=== PATIENT | female | born 1960 | race Caucasian/White ===

== ENCOUNTER 2016-07-09 21:13 | Emergency (ER) | payer OTHER ==
--- NOTE | 2016-07-09 21:59 | DIAGNOSTIC IMAGING REPORT ---
PROCEDURE: XR CHEST 1 VIEW INDICATION: SHORTNESS OF BREATH TECHNIQUE: Portable AP view 09:39 p.m. COMPARISON: None. FINDINGS: Small left basilar infiltrate. Heart and mediastinum are normal. Thorax is normal. IMPRESSION: 1. Small left basilar infiltrate.
--- NOTE | 2016-07-09 22:19 | ED CLINICAL REPORT ---
Clinical Report - Physicians/Mid Levels [facility] [address] [place] [address] 07/09/2016 21:17 [id number] Time Seen: 21:25; initial patient contact. Arrived- By private vehicle. Historian- patient. HISTORY OF PRESENT ILLNESS Chief Complaint: DYSPNEA. This started several weeks ago and is still present (worse since 3 days ago). The dyspnea is described as moderate. The patient has had sputum production, a cough, chest discomfort, wheezing and dyspnea on exertion. No fever, sweating episodes, chills, chest pain or calf pain. No foot swelling, orthopnea or palpitations. Similar symptoms previously: Several times. Recent medical care: Not recently seen/assessed. REVIEW OF SYSTEMS The patient has had a nasal discharge, sinus drainage and a sore throat. No nausea or vomiting. All systems otherwise negative, except as recorded above. PAST HISTORY HTN Anxiety Pneumonia. Surgeries: Carpal tunnel surgery. Medications: anxiety med. HCTZ. Lisinopril Oral. Allergies: No Known Drug Allergy. SOCIAL HISTORY Current every day smoker. Occasional alcohol use. History of drug use: marijuana. ADDITIONAL NOTES The nursing notes have been reviewed. PHYSICAL EXAM Vital Signs: 07/09/2016 21:23 BP: 150/88. HR: 103. RR: 20. O2 saturation: 96%. Temp: 98.1 F. Pain level now: 8/10. Have been reviewed. Hypertensive. Tachycardic. Respiratory rate normal. Temperature normal. Oxygen saturation normal. Appearance: Alert. No acute distress. Eyes: Eyes normal inspection. ENT: The mucous membranes are not dry. Neck: Normal inspection. CVS: Normal heart rate and rhythm. Heart sounds normal. Respiratory: No respiratory distress. Mild rhonchi present in the left lung base posteriorly. No decreased air movement, prolonged expiration or wheezes. Abdomen: Soft and nontender. No organomegaly. Extremities: No calf tenderness. No lower extremity edema. LABS, X-RAYS, AND EKG EKG: EKG time: (2135). No acute process. No acute ischemia. Normal EKG. Normal sinus rhythm. Rate: 91. Normal P waves. Normal FREDIS. Normal QRS complex. Normal axis. Normal ST and T waves, QT and QTc. Prior EKG unavailable. The study has been interpreted contemporaneously by me. The study has been independently viewed by me. The EKG appears to be a good tracing. Interpretation time: 2135. Chest X-ray: Diffuse infiltrate in the left lower lobe. Consistent with pneumonia. Views: AP. Technique: good. The X-rays were independently viewed by me and interpreted contemporaneously by me. Prior films were not available for comparison. Interpretation time: 22:16. PROGRESS AND PROCEDURES Disposition: Discharged home in good condition (22:20). Condition: good. CLINICAL IMPRESSION Bacterial pneumonia. Empiric antibiotics given in the ED and prescribed. No hypoxemia, respiratory failure or sepsis. INSTRUCTIONS Do not smoke. Seek medical help to quit smoking. Prescription Medications: Levofloxacin 750 mg: take 1 tab orally every day for 4 days. No refills. (Do not start until 07/10/16) Prednisone 20 mg: take 2 orally every day for 4 days. Dispense sufficient quantity. No refills. (Do not start until 07/10/16) Follow-up: Follow up with your doctor in about two days. Call for an appointment. Blood pressure screening was not performed during this visit because the patient has an active diagnosis of hypertension. (Electronically signed by Navid Bynum Dr. 07/09/2016 22:32)
--- NOTE | 2016-07-09 22:20 | ED NURSING NOTES ---
Clinical Report - Nurses [facility] [address] [place] [address] 07/09/2016 21:17 Patient: JO ANN DAWKINS TRIAGE Triage time 2120. Acuity: LEVEL 3. Chief Complaint: DIFFICULTY BREATHING and WHEEZING. --21:31 Nicolette Fuentes R.N. 21:23 07/09/16. BP: 150/88. HR: 103. RR: 20. O2 saturation: 96% on nasal cannula. Temp: 98.1 F. Pain level now: 10/06. --21:31 Nicolette Fuentes R.N. Weight: 88.4 kg stated. Height/Length: 65 inches Per Patient. BMI: 32.5. --21:24 Nicolette Fuentes R.N. Medications Lisinopril Oral 20 mg, daily. --21:28 Nicolette Fuentes R.N. HCTZ 25mg, daily. --21:30 Nicolette Fuentes R.N. albuterol MDI 2 puffs prn- 1999. --21:36 Nicolette Fuentes R.N. Escitalopram Oxalate Oral 10 mg, daily. --21:39 Nicolette Fuentes R.N. The following entry was struck by Nicolette Fuentes R.N., 21:39 (07/09/16) Reason - other. <<STRICKEN ENTRY-- anxiety med. --21:31 Nicolette Fuentes R.N. --END STRIKE>> The following entry was struck and corrected by Nicolette Fuentes R.N., 21:38 (07/09/16) Reason for correction - other(correction). <<STRICKEN ENTRY-- Lisinopril Oral. --21:28 Nicolette Fuentes R.N. --END STRIKE>> The following entry was struck and corrected by Nicolette Fuentes R.N., 21:38 (07/09/16) Reason for correction - other(correction). <<STRICKEN ENTRY-- HCTZ. --21:30 Nicolette Fuentes R.N. --END STRIKE>>. Allergies No Known Drug Allergy. --21:29 Nicolette Fuentes R.N. History Arrived by private vehicle. Historian: patient. Unaccompanied. Primary physician (aroldo mo). Onset. (has had cold symptoms off and on for several weeks, much worse last 3 days. having left side/back pain pain). She has had a cough productive of clear sputum. She has had wheezing and chest pain (with breathing deep or coughing). PAST MEDICAL HX: Hypertension. Asthma. The patient is post-menopausal. SURGERY HX: Carpal tunnel surgery. SOCIAL HX: Heavy tobacco smoker (cigarette)- less than 1 pack per day. Occasional alcohol use. History of drug use: marijuana. --21:31 Nicolette Fuentes R.N. PROBLEMS: Pneumonia. --21:27 Nicolette Fuentes R.N. Interventions ID band on patient. To treatment room. --21:31 Nicolette Fuentes R.N. PHYSICAL ASSESSMENT 21:20. Ambulatory to room. Patient gowned. GENERAL / NEURO / PSYCH: Alert. Oriented X 4. Appears anxious. RESPIRATORY: No respiratory distress. The patient can speak in full sentences. Cough. Chest wall tenderness. CVS: Capillary refill less than 2 seconds. GI / : Abdomen soft. SKIN: Skin is warm and dry. --21:32 Nicolette Fuentes R.N. NURSING PROGRESS NOTES 21:20. Oxygen administered. Monitoring of patient in place. Patient gowned. Head of bed elevated. Reassurance given. Patient identifiers checked. Call light placed in reach. Side rails up. Bed placed in lowest position. Patient ready for evaluation- chart flagged. --21:32 Nicolette Fuentes R.N. 21:36. EKG time: (2135). EKG was ordered, performed by a tech and shown to the ED physician. SERGEY Lenz tech. --21:34 Nicolette Fuentes R.N. 21:39 07/09/16. Portable chest x-ray ordered, performed and shown to the ED physician. --21:39 Nicolette Fuentes R.N. 22:02 07/09/2016 Levaquin (Levofloxacin) PO Tablets 500 mg given. Allergies verified and confirmed 5 rights. --22:02 Nicolette Fuentes R.N. 22:02 07/09/2016 Prednisone PO Tablets 40 mg given. Allergies verified and confirmed 5 rights. --22:02 Nicolette Fuentes R.N. 22:00 resting on bed, watching samuel michaels for radiology report. --22:41 Nicolette Fuentes R.N. DISPOSITION / DISCHARGE 22:30. Condition at departure: unchanged and stable. No learning barriers present. Discharge instructions provided and reviewed with the patient. Reviewed medication(s) (levaquin, prednisone). Patient verbalized understanding. Written instructions provided in Pashto. The patient was discharged home and unaccompanied at time of discharge. She left the Emergency Department ambulatory and via private vehicle. Patient driving. --22:38 Nicolette Fuentes R.N. 22:30 07/09/16. BP: 148/84. HR: 88. RR: 20. O2 saturation: 97% on room air. Temp: deferred. Pain level now: 10/06. --22:38 Nicolette Fuentes R.N. Locked/Released at 07/09/2016 22:41 by Nicolette Fuentes R.N.
--- NOTE | 2016-07-09 22:20 | ED ORDER SUMMARY ---
..... Patient: JO ANN DAWKINS OrderSheet [facility] VisitID: [id number] [address] [place] [address] 55y, F Registration Date/Time: 07/09/2016 ORDER SHEET Weight: 88.4 kg (stated) Allergies: No Known Drug Allergy GENERAL ORDERS: Chest 1V Urgent (21:33 07/09/2016 DDean R.N. per protocol) (Ack 21:36 Tramaine ER Model Dresser) (21:40 DDean R.N.) EKG - ER Stat (:33 07/09/2016 DDean R.N. per protocol) (Ack 21:36 Spacenet ER Model Dresser) (21:40 DDean R.N.) MEDICATION ORDERS: Levaquin PO 500 mg (NOW) (21:46 07/09/2016 Teresita Bro) (Ack 21:58 DDean R.N.) (22:02 DDean R.N.) Prednisone PO 40 mg (NOW) (21:46 07/09/2016 Teresita Bro) (Ack 21:58 DDean R.N.) (22:02 DDean R.N.) IV FLUIDS: ORDER SHEET NOTES: [Electronically signed by Navid Bynum Dr. (22:32 07/09/2016)] [Electronically signed by Nicolette Fuentes R.N. (22:41 07/09/2016)] [Electronically locked/signed by Nicolette Fuentes R.N. (22:41 07/09/2016)]
--- NOTE | 2016-07-09 22:20 | ED ORDER SUMMARY ---
..... Patient: JO ANN DAWKINS OrderSheet [facility] VisitID: [id number] [address] [place] [address] 55y, F Registration Date/Time: 07/09/2016 ORDER SHEET Weight: 88.4 kg (stated) Allergies: No Known Drug Allergy GENERAL ORDERS: Chest 1V Urgent (21:33 07/09/2016 DDean R.N. per protocol) (Ack 21:36 Tramaine ER Product Info Specialist) (21:40 DDean R.N.) EKG - ER Stat (:33 07/09/2016 DDean R.N. per protocol) (Ack 21:36 [employer] ER Product Info Specialist) (21:40 DDean R.N.) MEDICATION ORDERS: Levaquin PO 500 mg (NOW) (21:46 07/09/2016 Teresita Bro) (Ack 21:58 DDean R.N.) (22:02 DDean R.N.) Prednisone PO 40 mg (NOW) (21:46 07/09/2016 Teresita Bro) (Ack 21:58 DDean R.N.) (22:02 DDean R.N.) IV FLUIDS: ORDER SHEET NOTES: [Electronically signed by Navid Bynum Dr. (22:32 07/09/2016)] [Electronically signed by Nicolette Fuentes R.N. (22:41 07/09/2016)] [Electronically locked/signed by Nicolette Fuentes R.N. (22:41 07/09/2016)]
--- NOTE | 2016-07-09 22:41 | ED MAR SUMMARY ---
..... Medication Administration Record [facility] [address] [place] [address] Patient: JO ANN DAWKINS Visit ID: [id number] 55y, F Weight: 88.4 kg Height/Length: 65 in BMI: 32.5 ALLERGIES: No Known Drug Allergy Given 22:07/09/2016 Nicolette Fuentes R.N. Medication Administered: LEVAQUIN [PO] (LEVOFLOXACIN), Dose: 500 mg Tablets PO. Medication Ordered: Levaquin PO 500 mg (NOW). Given 22:07/09/2016 Nicolette Fuentes, R.N. Medication Administered: PREDNISONE [PO], Dose: 40 mg Tablets PO. Medication Ordered: Prednisone PO 40 mg (NOW).
--- NOTE | 2016-07-09 22:41 | ED MAR SUMMARY ---
..... Medication Administration Record [facility] [address] [place] [place] [address] Patient: JO ANN DAWKINS Visit ID: [id number] 55y, F Weight: 88.4 kg Height/Length: 65 in BMI: 32.5 ALLERGIES: No Known Drug Allergy Given 22:07/09/2016 Nicolette Fuentes R.N. Medication Administered: LEVAQUIN [PO] (LEVOFLOXACIN), Dose: 500 mg Tablets PO. Medication Ordered: Levaquin PO 500 mg (NOW). Given 22:07/09/2016 Nicolette Fuentes, R.N. Medication Administered: PREDNISONE [PO], Dose: 40 mg Tablets PO. Medication Ordered: Prednisone PO 40 mg (NOW).
--- NOTE | 2016-07-09 22:41 | ED MED RECONCILIATION SUMMARY ---
Patient: JO ANN DAWKINS Medication Reconciliation Report [facility] VisitID: [id number] [address] [place] [address] 55y, F Registration Date/Time: 07/09/2016 Weight: 88.4 kg Height/Length: 65 in. BMI: 32.5 ALLERGIES: No Known Drug Allergy The patient's Home Medications are listed below: THE FOLLOWING MEDICATIONS NEED TO BE RECONCILED: albuterol MDI 2 puffs prn- 2000 Escitalopram Oxalate Oral 10 mg, daily HCTZ 25mg, daily Lisinopril Oral 20 mg, daily The source(s) of the original Home Medication information: Not obtained. The following Medications were given to the patient in the Emergency Department: Levaquin [PO] PO 500 mg, administered: 07/09/2016 10:02:00 PM Prednisone [PO] PO 40 mg, administered: 07/09/2016 10:02:00 PM The following Medications were prescribed to the patient: Levofloxacin 750 mg: take 1 tab orally every day for 4 days. No refills.(Do not start until 07/10/16) -- Navid Bynum Dr. Prednisone 20 mg: take 2 orally every day for 4 days. Dispense sufficient quantity. No refills.(Do not start until 07/10/16) -- Navid Bynum Dr.
--- NOTE | 2016-07-09 22:41 | ED DISCHARGE INSTRUCTIONS ---
Patient: JO ANN DAWKINS General Instructions [facility] VisitID: [id number] [place] [address] 55y, F Registration Date/Time: 07/09/2016 Bacterial pneumonia. Empiric antibiotics given in the ED and prescribed. No hypoxemia, respiratory failure or sepsis. INSTRUCTIONS Do not smoke. Seek medical help to quit smoking. Prescription Medications: Levofloxacin 750 mg: take 1 tab orally every day for 4 days. No refills. (Do not start until 07/10/16) Prednisone 20 mg: take 2 orally every day for 4 days. Dispense sufficient quantity. No refills. (Do not start until 07/10/16) Follow-up: Follow up with your doctor in about two days. Call for an appointment. Blood pressure screening was not performed during this visit because the patient has an active diagnosis of hypertension. ADDITIONAL INFORMATION How To Quit Smoking Smoking is one of the hardest habits to break. About half of all those who have ever smoked have been able to quit, and most of those (about 70%) who still smoke want to quit. Here are some of the best ways to stop smoking. Keep Trying: It takes most smokers about 8 tries before they are finally able to fully quit. So, the more often you try and fail, the better your chance of quitting the next time! So, don't give up! Go Cold [place]: Most ex-smokers quit cold turkey. Trying to cut back gradually doesn't seem to work as well, perhaps because it continues the smoking habit. Also, it is possible to fool yourself by inhaling more while smoking fewer cigarettes. This results in the same amount of nicotine in your body! Get Support: Support programs can make an important difference, especially for the heavy smoker. These groups offer lectures, methods to change your behavior and peer support. Call the free national Quitline for more information. 313-LTOJ-KFT (092-135-7622). Low-cost or free programs are offered by many hospitals, local chapters of the [place] [employer] (741-632-8328) and the [place] [employer] (635-207-5385). Support at home is important too. Non-smokers can help by offering praise and encouragement. If the smoker fails to quit, encourage them to try again! Vwez-Nfd-Luzsfht Medicines: For those who can't quit on their own, Nicotine Replacement Therapy (NRT) may make quitting much easier. Certain aids such as the nicotine patch, gum and lozenge are available without a prescription. However, it is best to use these under the guidance of your doctor. The skin patch provides a steady supply of nicotine to the body. Nicotine gum and lozenge gives temporary bursts of low levels of nicotine. Both methods take the edge off the craving for cigarettes. WARNING: If you feel symptoms of nicotine overdose, such as nausea, vomiting, dizziness, weakness, or fast heartbeat, stop using these and see your doctor. Prescription Medicines: After evaluating your smoking patterns and prior attempts at quitting, your doctor may offer a prescription medicine such as bupropion (Zyban, Wellbutrin), varenicline (Chantix, Champix), a niocotine inhaler or nasal spray. Each has its unique advantage and side effects which your doctor can review with you. Health Benefits Of Quitting: The benefits of quitting start right away and keep improving the longer you go without smokin minutes: blood pressure and pulse return to normal 8 hours: oxygen levels return to normal 2 days: ability to smell and taste begins to improve as damaged nerves start to regrow 2-3 weeks: circulation and lung function improves 1-9 months: decreased cough, congestion and shortness of breath; less tired 1 year: risk of heart attack decreases by half 5 years: risk of lung cancer decreases by half; risk of stroke becomes the same as a non-smoker For information about how to quit smoking, visit the following links: National [employer] , Clearing the Air, Quit Smoking Today - an online booklet. http://www.smokefree.gov/pubs/clearing_the_air.pdf Smokefree.gov http://smokefree.gov/ QuitNet http://www.quitnet.com/ Levofloxacin Oral tablet What is this medicine? LEVOFLOXACIN (veronique may) is a quinolone antibiotic. It is used to treat certain kinds of bacterial infections. It will not work for colds, flu, or other viral infections. How should I use this medicine? Take this medicine by mouth with a full glass of water. Follow the directions on the prescription label. This medicine can be taken with or without food. Take your medicine at regular intervals. Do not take your medicine more often than directed. Do not skip doses or stop your medicine early even if you feel better. Do not stop taking except on your doctor's advice. A special MedGuide will be given to you by the pharmacist with each prescription and refill. Be sure to read this information carefully each time. Talk to your chemical strength tester regarding the use of this medicine in children. While this drug may be prescribed for children as young as 6 months for selected conditions, precautions do apply. What side effects may I notice from receiving this medicine? Side effects that you should report to your doctor or health nurse care manager as soon as possible: -allergic reactions like skin rash or hives, swelling of the face, lips, or tongue -changes in vision -confusion, nightmares or hallucinations -difficulty breathing -irregular heartbeat, chest pain -joint, muscle or tendon pain -pain or difficulty passing urine -persistent headache with or without blurred vision -redness, blistering, peeling or loosening of the skin, including inside the mouth -seizures -unusual pain, numbness, tingling, or weakness -vaginal irritation, discharge Side effects that usually do not require medical attention (report to your doctor or health nurse care manager if they continue or are bothersome): -diarrhea -dry mouth -headache -stomach upset, nausea -trouble sleeping What may interact with this medicine? Do not take this medicine with any of the following medications: - arsenic trioxide - chloroquine - droperidol - medicines for irregular heart rhythm like amiodarone, disopyramide, dofetilide, flecainide, quinidine, procainamide, sotalol - some medicines for depression or mental problems like phenothiazines, pimozide, and ziprasidone This medicine may also interact with the following medications: - amoxapine -antacids - cisapride - dairy products - didanosine (ddI) buffered tablets or powder - haloperidol - multivitamins -NSAIDS, medicines for pain and inflammation, like ibuprofen or naproxen - retinoid products like tretinoin or isotretinoin - risperidone - some other antibiotics like clarithromycin or erythromycin - sucralfate - theophylline - warfarin What if I miss a dose? If you miss a dose, take it as soon as you remember. If it is almost time for your next dose, take only that dose. Do not take double or extra doses. Where should I keep my medicine? Keep out of the reach of children. Store at room temperature between 15 and 30 degrees C (59 and 86 degrees F). Keep in a tightly closed container. Throw away any unused medicine after the expiration date. What should I tell my health care provider before I take this medicine? They need to know if you have any of these conditions: cerebral disease irregular heartbeat kidney disease seizure disorder an unusual or allergic reaction to levofloxacin, other antibiotics or medicines, foods, dyes, or preservatives or trying to get breast-feeding What should I watch for while using this medicine? Tell your doctor or health nurse care manager if your symptoms do not improve or if they get worse. Drink several glasses of water a day and cut down on drinks that contain caffeine. You must not get dehydrated while taking this medicine. You may get drowsy or dizzy. Do not drive, use machinery, or do anything that needs mental alertness until you know how this medicine affects you. Do not sit or stand up quickly, especially if you are an older patient. This reduces the risk of dizzy or fainting spells. This medicine can make you more sensitive to the sun. Keep out of the sun. If you cannot avoid being in the sun, wear protective clothing and use a sunscreen. Do not use sun lamps or tanning beds/booths. Contact your doctor if you get a sunburn. If you are a diabetic monitor your blood glucose carefully. If you get an unusual reading stop taking this medicine and call your doctor right away. Do not treat diarrhea with ojea-eye-twoubio products. Contact your doctor if you have diarrhea that lasts more than 2 days or if the diarrhea is severe and watery. Avoid antacids, calcium, iron, and zinc products for 2 hours before and 2 hours after taking a dose of this medicine. Prednisone Oral tablet What is this medicine? PREDNISONE (PRED ni sone) is a corticosteroid. It is commonly used to treat inflammation of the skin, joints, lungs, and other organs. Common conditions treated include asthma, allergies, and arthritis. It is also used for other conditions, such as blood disorders and diseases of the adrenal glands. How should I use this medicine? Take this medicine by mouth with a glass of water. Follow the directions on the prescription label. Take this medicine with food. If you are taking this medicine once a day, take it in the morning. Do not take more medicine than you are told to take. Do not suddenly stop taking your medicine because you may develop a severe reaction. Your doctor will tell you how much medicine to take. If your doctor wants you to stop the medicine, the dose may be slowly lowered over time to avoid any side effects. Talk to your chemical strength tester regarding the use of this medicine in children. Special care may be needed. What side effects may I notice from receiving this medicine? Side effects that you should report to your doctor or health nurse care manager as soon as possible: allergic reactions like skin rash, itching or hives, swelling of the face, lips, or tongue changes in emotions or moods changes in vision depressed mood eye pain fever or chills, cough, sore throat, pain or difficulty passing urine increased thirst swelling of ankles, feet Side effects that usually do not require medical attention (report to your doctor or health nurse care manager if they continue or are bothersome): confusion, excitement, restlessness headache nausea, vomiting skin problems, acne, thin and shiny skin trouble sleeping weight gain What may interact with this medicine? Do not take this medicine with any of the following medications: metyrapone mifepristone This medicine may also interact with the following medications: aminoglutethimide amphotericin B aspirin and aspirin-like medicines barbiturates certain medicines for diabetes, like glipizide or glyburide cholestyramine cholinesterase inhibitors cyclosporine digoxin diuretics ephedrine female hormones, like estrogens and control pills isoniazid ketoconazole NSAIDS, medicines for pain and inflammation, like ibuprofen or naproxen phenytoin rifampin toxoids vaccines warfarin What if I miss a dose? If you miss a dose, take it as soon as you can. If it is almost time for your next dose, talk to your doctor or health nurse care manager. You may need to miss a dose or take an extra dose. Do not take double or extra doses without advice. Where should I keep my medicine? Keep out of the reach of children. Store at room temperature between 15 and 30 degrees C (59 and 86 degrees F). Protect from light. Keep container tightly closed. Throw away any unused medicine after the expiration date. What should I tell my health care provider before I take this medicine? They need to know if you have any of these conditions: Kaaawa's syndrome diabetes glaucoma heart disease high blood pressure infection (especially a virus infection such as chickenpox, cold sores, or herpes) kidney disease liver disease mental illness myasthenia gravis osteoporosis seizures stomach or intestine problems thyroid disease an unusual or allergic reaction to lactose, prednisone, other medicines, foods, dyes, or preservatives or trying to get breast-feeding What should I watch for while using this medicine? Visit your doctor or health nurse care manager for regular checks on your progress. If you are taking this medicine over a prolonged period, carry an identification card with your name and address, the type and dose of your medicine, and your doctor's name and address. This medicine may increase your risk of getting an infection. Tell your doctor or health nurse care manager if you are around anyone with measles or chickenpox, or if you develop sores or blisters that do not heal properly. If you are going to have surgery, tell your doctor or health nurse care manager that you have taken this medicine within the last twelve months. Ask your doctor or health nurse care manager about your diet. You may need to lower the amount of salt you eat. This medicine may affect blood sugar levels. If you have diabetes, check with your doctor or health nurse care manager before you change your diet or the dose of your diabetic medicine. You have been given the following additional information: Smoking Cessation Levofloxacin Oral tablet Prednisone Oral tablet (Electronically signed by Navid Bynum Dr. 07/09/2016 22:32)
--- NOTE | 2016-07-09 22:41 | ED MED RECONCILIATION SUMMARY ---
Patient: JO ANN DAWKINS Medication Reconciliation Report [facility] VisitID: [id number] [place] [address] 55y, F Registration Date/Time: 07/09/2016 Weight: 88.4 kg Height/Length: 65 in. BMI: 32.5 ALLERGIES: No Known Drug Allergy The patient's Home Medications are listed below: THE FOLLOWING MEDICATIONS NEED TO BE RECONCILED: albuterol MDI 2 puffs prn- 2000 Escitalopram Oxalate Oral 10 mg, daily HCTZ 25mg, daily Lisinopril Oral 20 mg, daily The source(s) of the original Home Medication information: Not obtained. The following Medications were given to the patient in the Emergency Department: Levaquin [PO] PO 500 mg, administered: 07/09/2016 10:02:00 PM Prednisone [PO] PO 40 mg, administered: 07/09/2016 10:02:00 PM The following Medications were prescribed to the patient: Levofloxacin 750 mg: take 1 tab orally every day for 4 days. No refills.(Do not start until 07/10/16) -- Navid Bynum Dr. Prednisone 20 mg: take 2 orally every day for 4 days. Dispense sufficient quantity. No refills.(Do not start until 07/10/16) -- Navid Bynum Dr.
--- NOTE | 2016-07-09 22:41 | ED DISCHARGE INSTRUCTIONS ---
Patient: JO ANN DAWKINS General Instructions [facility] VisitID: [id number] [place] [address] 55y, F Registration Date/Time: 07/09/2016 Bacterial pneumonia. Empiric antibiotics given in the ED and prescribed. No hypoxemia, respiratory failure or sepsis. INSTRUCTIONS Do not smoke. Seek medical help to quit smoking. Prescription Medications: Levofloxacin 750 mg: take 1 tab orally every day for 4 days. No refills. (Do not start until 07/10/16) Prednisone 20 mg: take 2 orally every day for 4 days. Dispense sufficient quantity. No refills. (Do not start until 07/10/16) Follow-up: Follow up with your doctor in about two days. Call for an appointment. Blood pressure screening was not performed during this visit because the patient has an active diagnosis of hypertension. ADDITIONAL INFORMATION How To Quit Smoking Smoking is one of the hardest habits to break. About half of all those who have ever smoked have been able to quit, and most of those (about 70%) who still smoke want to quit. Here are some of the best ways to stop smoking. Keep Trying: It takes most smokers about 8 tries before they are finally able to fully quit. So, the more often you try and fail, the better your chance of quitting the next time! So, don't give up! Go Cold Desha: Most ex-smokers quit cold turkey. Trying to cut back gradually doesn't seem to work as well, perhaps because it continues the smoking habit. Also, it is possible to fool yourself by inhaling more while smoking fewer cigarettes. This results in the same amount of nicotine in your body! Get Support: Support programs can make an important difference, especially for the heavy smoker. These groups offer lectures, methods to change your behavior and peer support. Call the free national Quitline for more information. 172-TFTR-UIC (930-320-9094). Low-cost or free programs are offered by many hospitals, local chapters of the [place] [employer] (302-790-4216) and the [place] [employer] (387-302-9686). Support at home is important too. Non-smokers can help by offering praise and encouragement. If the smoker fails to quit, encourage them to try again! Xcse-Ibe-Tabopen Medicines: For those who can't quit on their own, Nicotine Replacement Therapy (NRT) may make quitting much easier. Certain aids such as the nicotine patch, gum and lozenge are available without a prescription. However, it is best to use these under the guidance of your doctor. The skin patch provides a steady supply of nicotine to the body. Nicotine gum and lozenge gives temporary bursts of low levels of nicotine. Both methods take the edge off the craving for cigarettes. WARNING: If you feel symptoms of nicotine overdose, such as nausea, vomiting, dizziness, weakness, or fast heartbeat, stop using these and see your doctor. Prescription Medicines: After evaluating your smoking patterns and prior attempts at quitting, your doctor may offer a prescription medicine such as bupropion (Zyban, Wellbutrin), varenicline (Chantix, Champix), a niocotine inhaler or nasal spray. Each has its unique advantage and side effects which your doctor can review with you. Health Benefits Of Quitting: The benefits of quitting start right away and keep improving the longer you go without smokin minutes: blood pressure and pulse return to normal 8 hours: oxygen levels return to normal 2 days: ability to smell and taste begins to improve as damaged nerves start to regrow 2-3 weeks: circulation and lung function improves 1-9 months: decreased cough, congestion and shortness of breath; less tired 1 year: risk of heart attack decreases by half 5 years: risk of lung cancer decreases by half; risk of stroke becomes the same as a non-smoker For information about how to quit smoking, visit the following links: National Cancer [place] , Clearing the Air, Quit Smoking Today - an online booklet. http://www.smokefree.gov/pubs/clearing_the_air.pdf Smokefree.gov http://smokefree.gov/ QuitNet http://www.quitnet.com/ Levofloxacin Oral tablet What is this medicine? LEVOFLOXACIN (veronique may) is a quinolone antibiotic. It is used to treat certain kinds of bacterial infections. It will not work for colds, flu, or other viral infections. How should I use this medicine? Take this medicine by mouth with a full glass of water. Follow the directions on the prescription label. This medicine can be taken with or without food. Take your medicine at regular intervals. Do not take your medicine more often than directed. Do not skip doses or stop your medicine early even if you feel better. Do not stop taking except on your doctor's advice. A special MedGuide will be given to you by the pharmacist with each prescription and refill. Be sure to read this information carefully each time. Talk to your waiter/waitress third class regarding the use of this medicine in children. While this drug may be prescribed for children as young as 6 months for selected conditions, precautions do apply. What side effects may I notice from receiving this medicine? Side effects that you should report to your doctor or health care connector as soon as possible: -allergic reactions like skin rash or hives, swelling of the face, lips, or tongue -changes in vision -confusion, nightmares or hallucinations -difficulty breathing -irregular heartbeat, chest pain -joint, muscle or tendon pain -pain or difficulty passing urine -persistent headache with or without blurred vision -redness, blistering, peeling or loosening of the skin, including inside the mouth -seizures -unusual pain, numbness, tingling, or weakness -vaginal irritation, discharge Side effects that usually do not require medical attention (report to your doctor or health care connector if they continue or are bothersome): -diarrhea -dry mouth -headache -stomach upset, nausea -trouble sleeping What may interact with this medicine? Do not take this medicine with any of the following medications: - arsenic trioxide - chloroquine - droperidol - medicines for irregular heart rhythm like amiodarone, disopyramide, dofetilide, flecainide, quinidine, procainamide, sotalol - some medicines for depression or mental problems like phenothiazines, pimozide, and ziprasidone This medicine may also interact with the following medications: - amoxapine -antacids - cisapride - dairy products - didanosine (ddI) buffered tablets or powder - haloperidol - multivitamins -NSAIDS, medicines for pain and inflammation, like ibuprofen or naproxen - retinoid products like tretinoin or isotretinoin - risperidone - some other antibiotics like clarithromycin or erythromycin - sucralfate - theophylline - warfarin What if I miss a dose? If you miss a dose, take it as soon as you remember. If it is almost time for your next dose, take only that dose. Do not take double or extra doses. Where should I keep my medicine? Keep out of the reach of children. Store at room temperature between 15 and 30 degrees C (59 and 86 degrees F). Keep in a tightly closed container. Throw away any unused medicine after the expiration date. What should I tell my health care provider before I take this medicine? They need to know if you have any of these conditions: cerebral disease irregular heartbeat kidney disease seizure disorder an unusual or allergic reaction to levofloxacin, other antibiotics or medicines, foods, dyes, or preservatives or trying to get breast-feeding What should I watch for while using this medicine? Tell your doctor or health care connector if your symptoms do not improve or if they get worse. Drink several glasses of water a day and cut down on drinks that contain caffeine. You must not get dehydrated while taking this medicine. You may get drowsy or dizzy. Do not drive, use machinery, or do anything that needs mental alertness until you know how this medicine affects you. Do not sit or stand up quickly, especially if you are an older patient. This reduces the risk of dizzy or fainting spells. This medicine can make you more sensitive to the sun. Keep out of the sun. If you cannot avoid being in the sun, wear protective clothing and use a sunscreen. Do not use sun lamps or tanning beds/booths. Contact your doctor if you get a sunburn. If you are a diabetic monitor your blood glucose carefully. If you get an unusual reading stop taking this medicine and call your doctor right away. Do not treat diarrhea with [id number] products. Contact your doctor if you have diarrhea that lasts more than 2 days or if the diarrhea is severe and watery. Avoid antacids, calcium, iron, and zinc products for 2 hours before and 2 hours after taking a dose of this medicine. Prednisone Oral tablet What is this medicine? PREDNISONE (PRED ni sone) is a corticosteroid. It is commonly used to treat inflammation of the skin, joints, lungs, and other organs. Common conditions treated include asthma, allergies, and arthritis. It is also used for other conditions, such as blood disorders and diseases of the adrenal glands. How should I use this medicine? Take this medicine by mouth with a glass of water. Follow the directions on the prescription label. Take this medicine with food. If you are taking this medicine once a day, take it in the morning. Do not take more medicine than you are told to take. Do not suddenly stop taking your medicine because you may develop a severe reaction. Your doctor will tell you how much medicine to take. If your doctor wants you to stop the medicine, the dose may be slowly lowered over time to avoid any side effects. Talk to your waiter/waitress third class regarding the use of this medicine in children. Special care may be needed. What side effects may I notice from receiving this medicine? Side effects that you should report to your doctor or health care connector as soon as possible: allergic reactions like skin rash, itching or hives, swelling of the face, lips, or tongue changes in emotions or moods changes in vision depressed mood eye pain fever or chills, cough, sore throat, pain or difficulty passing urine increased thirst swelling of ankles, feet Side effects that usually do not require medical attention (report to your doctor or health care connector if they continue or are bothersome): confusion, excitement, restlessness headache nausea, vomiting skin problems, acne, thin and shiny skin trouble sleeping weight gain What may interact with this medicine? Do not take this medicine with any of the following medications: metyrapone mifepristone This medicine may also interact with the following medications: aminoglutethimide amphotericin B aspirin and aspirin-like medicines barbiturates certain medicines for diabetes, like glipizide or glyburide cholestyramine cholinesterase inhibitors cyclosporine digoxin diuretics ephedrine female hormones, like estrogens and control pills isoniazid ketoconazole NSAIDS, medicines for pain and inflammation, like ibuprofen or naproxen phenytoin rifampin toxoids vaccines warfarin What if I miss a dose? If you miss a dose, take it as soon as you can. If it is almost time for your next dose, talk to your doctor or health care connector. You may need to miss a dose or take an extra dose. Do not take double or extra doses without advice. Where should I keep my medicine? Keep out of the reach of children. Store at room temperature between 15 and 30 degrees C (59 and 86 degrees F). Protect from light. Keep container tightly closed. Throw away any unused medicine after the expiration date. What should I tell my health care provider before I take this medicine? They need to know if you have any of these conditions: [place]'s syndrome diabetes glaucoma heart disease high blood pressure infection (especially a virus infection such as chickenpox, cold sores, or herpes) kidney disease liver disease mental illness myasthenia gravis osteoporosis seizures stomach or intestine problems thyroid disease an unusual or allergic reaction to lactose, prednisone, other medicines, foods, dyes, or preservatives or trying to get breast-feeding What should I watch for while using this medicine? Visit your doctor or health care connector for regular checks on your progress. If you are taking this medicine over a prolonged period, carry an identification card with your name and address, the type and dose of your medicine, and your doctor's name and address. This medicine may increase your risk of getting an infection. Tell your doctor or health care connector if you are around anyone with measles or chickenpox, or if you develop sores or blisters that do not heal properly. If you are going to have surgery, tell your doctor or health care connector that you have taken this medicine within the last twelve months. Ask your doctor or health care connector about your diet. You may need to lower the amount of salt you eat. This medicine may affect blood sugar levels. If you have diabetes, check with your doctor or health care connector before you change your diet or the dose of your diabetic medicine. You have been given the following additional information: Smoking Cessation Levofloxacin Oral tablet Prednisone Oral tablet (Electronically signed by Navid Bynum Dr. 07/09/2016 22:32)
== END 2016-07-09 22:30 | disposition home or self-care (01) ==
LOC: ED SRH 21:13
DX: J15.9 Unspecified bacterial pneumonia (principal); I10 Essential (primary) hypertension; Z79.899 Other long term (current) drug therapy